=== PATIENT | male | born 1975 | race Caucasian/White ===

== ENCOUNTER 2019-06-17 16:10 | Emergency (ER) | payer SELFPAY ==
[2019-06-17 16:22] VITALS: BP 144/96; PULSE 110; TEMP 98.3; BMI 37.5
--- NOTE | 2019-06-17 17:10 | PDOC ---
History of Present Illness - General Chief Complaint: Nasal Bleeding Stated Complaint: EPISTAXIS Time Seen by Provider: 06/17/19 16:25 - History of Present Illness Initial Comments: 06/17/19 17:07 CHIEF COMPLAINT: epistaxis HISTORY OF PRESENT ILLNESS: 43 yo M presents to fast track with epistaxis since this morning. Patient reports he went to an urgent care where they placed "the balloon or something" but was concerned because it appeared to still be bleeding when he left the urgent care. He reports he is not currently bleeding but wanted to make sure it was ok. No recent travel or sick contacts. PAST MEDICAL HISTORY: Denies past medical history FAMILY HISTORY: Denies SOCIAL HISTORY: Denies tobacco, alcohol, illicit drug use. SURGICAL HISTORY: Denies ALLERGIES: No known drug allergies REVIEW OF SYSTEMS General/Constitutional: Denies fever or chills. Denies weakness, weight change. HEENT: Epistaxis since this morning, no active bleeding at this time. Cardiovascular: Denies chest pain or shortness of breath. Respiratory: Denies cough, wheezing, or hemoptysis. Gastrointestinal: Denies nausea, vomiting, diarrhea or constipation. Denies rectal bleeding. Genitourinary: Denies dysuria, frequency, or change in urination. Musculoskeletal: Denies joint or muscle swelling or pain. Denies neck or back pain. Skin and breasts: Denies rash or easy bruising. Neurologic: Denies headache, vertigo, loss of consciousness, or loss of sensation. Psychiatric: Denies depression or anxiety. PHYSICAL EXAM General Appearance: Well-appearing, appropriately dressed. No apparent distress , no intoxication. HEENT: Saturated rhinorocket to left nare, no active bleeding. EOMI, PERRLA, normal ENT inspection, normal voice, TMs normal, pharynx normal. No conjunctival pallor. No photophobia, scleral icterus. Neck: Supple. Trachea midline. No tenderness, rigidity, carotid bruit, stridor , lymphadenopathy, or thyromegaly. Respiratory/Chest: Lungs CTAB. No shortness of breath, chest tenderness, respiratory distress, accessory muscle use. No crackles, rales, rhonchi, stridor , wheezing, dullness Cardiovascular: RRR. S1, S2. No JVD, murmur, bradycardia, tachycardia. Vascular Pulses: Dorsalis-Pedis (R): 2+, Dorsalis-Pedis (L): 2+ Gastrointestinal/Abdominal: Normal bowel sounds. Abdomen soft, non-distended. No tenderness or rebound tenderness. No organomegaly, pulsatile mass, guarding , hernia, hepatomegaly, splenomegaly. Lymphatic: No adenopathy, tenderness. Musculoskeletal/Extremities: Normal inspection. FROM of all extremities, normal capillary refill. Pelvis Stable. No CVA tenderness. No tenderness to extremities, pedal edema, swelling, erythema or deformity. Integumentary: Appropriate color, dry, warm. 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 Fully oriented, alert. Appropriate mood/affect. Motor strength 5/5. No appreciable EOM palsy, facial droop or sensory deficit. Past History - Past Medical History Allergies/Adverse Reactions: Allergies Allergy/AdvReac Type Severity Reaction Status Date / Time No Known Allergies Allergy Verified 06/17/19 16:22 COPD: No - Psycho Social/Smoking Cessation Hx Smoking History: Never smoked Have you smoked in the past 12 months: No Information on smoking cessation initiated: No Hx Alcohol Use: No Drug/Substance Use Hx: No *Physical Exam - Vital Signs Last Vital Signs Temp Pulse Resp BP Pulse Ox 98.3 F 110 H 18 144/96 100 06/17/19 16:18 06/17/19 16:18 06/17/19 16:18 06/17/19 16:18 06/17/19 16:18 Medical Decision Making - Medical Decision Making 06/17/19 17:10 43 yo M presents to fast track with epistaxis since this morning. Advised patient to f/u with ENT for nasal tampon removal. Patient verbalized understanding and agrees to plan. Discharge - Discharge Information Problems reviewed: Yes Clinical Impression/Diagnosis: Bleeding nose Condition: Stable Disposition: HOME - Admission No - Follow up/Referral Referrals: Venkatesh Harrison MD [Staff Physician] - - Patient Discharge Instructions Patient Printed Discharge Instructions: DI for Nosebleed - Post Discharge Activity
== END 2019-06-17 17:54 | disposition home or self-care (01) ==
LOC: SJMCTERGIS 16:10 → JER 16:10
DX: R04.0 Epistaxis (principal)
CPT/HCPCS: 99281-25

== ENCOUNTER 2019-06-17 19:14 | Emergency (ER) | payer SELFPAY ==
--- NOTE | 2019-06-17 19:17 | PDOC ---
Rapid Medical Evaluation Time Seen by Provider: 06/17/19 19:17 Medical Evaluation: Allergies Allergy/AdvReac Type Severity Reaction Status Date / Time No Known Allergies Allergy Verified 06/17/19 16:22 06/17/19 19:17 I have performed a brief in-person evaluation of this patient. The patient presents with a chief complaint of:epistaxis. Seen in ED earlier today for same after c/o bleeding around nasal packing that was placed in this am. Was not actively bleeding in ED earlier so was discharged to f/u with ENT with whom he has a referral for in 2 days. Returns tonight w/ complaint that he has been bleeding around packing since he's been home and fells "like I' m choking on something back there". H/o epistaxis, not on blood thinners Pertinent physical exam findings: nasal packing in place to L nares w/ active epistaxis around packing, saturating string I have ordered the following:nothing The patient will proceed to the ED for further evaluation. Discharge Disposition - Diagnosis Epistaxis - Referrals - Patient Instructions - Post Discharge Activity
[2019-06-17 19:31] VITALS: BMI 36.0
--- NOTE | 2019-06-17 21:03 | PDOC ---
History of Present Illness - General Chief Complaint: Nasal Bleeding Stated Complaint: NOSE BLEED Time Seen by Provider: 06/17/19 19:17 History Source: Patient Exam Limitations: No Limitations - History of Present Illness Initial Comments: 06/17/19 23:42 43 yo M with a hx of Ulcerative Colitis presents to the emergency department with nose bleeding that has occurred since 7 am today. Per the patient, never had this prior and stated that he has had URI for the last 1.5 weeks which involved digital trauma to the nares when he would wipe his nose. He denies AC use. He states he feels lightheaded and increased anxiety. He presented at Urgent care today who gave him gauze packing without afrin use. He denies having a rhino rocket in the past. Denies the following: fever, chills, trauma, ear pain, chest pain, nausea, vomiting, dysuria, hematuria, hematochezia, and leg pain/swelling. PE: blood in the nares bilaterally. unable to visualize bleeding source but active bleeding draining from right nare. Patient was given afrin soaked gauze and applied pressure for 15-20 minutes with cessation of bleeding. Patient was signed out to day team. Past History - Past Medical History Allergies/Adverse Reactions: Allergies Allergy/AdvReac Type Severity Reaction Status Date / Time No Known Allergies Allergy Verified 06/17/19 16:22 Home Medications: Ambulatory Orders NK [No Known Home Medication] 06/17/19 COPD: No Other medical history: h/o nose bleeds - Psycho Social/Smoking Cessation Hx Smoking History: Never smoked Have you smoked in the past 12 months: No Hx Alcohol Use: No Drug/Substance Use Hx: No *Physical Exam - Vital Signs Last Vital Signs Temp Pulse Resp BP Pulse Ox 97.9 F 114 H 20 144/96 100 06/17/19 19:18 06/17/19 19:18 06/17/19 19:18 06/17/19 19:18 06/17/19 19:18 ED Treatment Course - LABORATORY CBC & Chemistry Diagram: 06/17/19 21:55 06/17/19 21:55 Discharge - Discharge Information Clinical Impression/Diagnosis: Epistaxis - Follow up/Referral - Patient Discharge Instructions - Post Discharge Activity
[2019-06-17] MEDS ORDERED: OXYMETAZOLINE 0.05% NASAL SOLUTION 15 ML BOTTLE NS ONE (21:04)
[2019-06-17 22:28] LABS: BASO % 0.6 % (0-2.0); EOS % 4.4 % (0-4.5); HEMATOCRIT 38.3 % (35.4-49); HEMOGLOBIN 12.7 GM/dL (11.7-16.9); LYMPH % 24.6 % (8-40); MCH 27.4 pg (25.7-33.7); MCHC 33.2 g/dl (32.0-35.9); MEAN CELL VOLUME 82.5 fl (80-96); MEAN PLT VOLUME 8.4 fl (7.5-11.1); MONO % 6.9 % (3.8-10.2); NEUT % 63.5 % (42.8-82.8); PLATELET COUNT 317 K/MM3 (134-434); RBC 4.64 M/mm3 (4.00-5.60); RDW 13.5 % (11.9-15.9); WHITE BLOOD COUNT 8.9 K/mm3 (4.0-10.0)
[2019-06-17 22:40] LABS: INR 1.06 (0.83-1.09); PROTHROMBIN TIME (PATIENT) 12.5 SEC (9.7-13.0)
[2019-06-17 22:51] VITALS: BP 134/98; PULSE 109; TEMP 97.6
[2019-06-17 22:53] LABS: ALBUMIN 3.9 g/dl (3.4-5.0); BILIRUBIN,TOTAL 0.4 mg/dL (0.2-1); CALCIUM 9.5 mg/dL (8.5-10.1); CREATININE 0.9 mg/dL (0.55-1.3); TOT PROT 8.6 g/dl (6.4-8.2)
--- NOTE | 2019-06-17 23:50 | PDOC ---
*Physical Exam - Vital Signs Last Vital Signs Temp Pulse Resp BP Pulse Ox 97.6 F 109 H 20 134/98 95 06/17/19 20:20 06/17/19 20:20 06/17/19 20:20 06/17/19 20:20 06/17/19 20:20 - Physical Exam Comments: 06/17/19 23:46 GENERAL: Awake, alert, and fully oriented, in no acute distress HEAD: No signs of trauma, normocephalic, atraumatic EYES: PERRLA, EOMI, sclera anicteric, conjunctiva clear ENT: + Dried blood BL nares. Auricles normal inspection, hearing grossly normal , nares patent, oropharynx clear without exudates. Moist mucosa NECK: Normal ROM, supple, no lymphadenopathy, JVD, or masses LUNGS: No distress, speaks full sentences, clear to auscultation bilaterally HEART: Regular rate and rhythm, normal S1 and S2, no murmurs, rubs or gallops, peripheral pulses normal and equal bilaterally. ABDOMEN: Soft, nontender, normoactive bowel sounds. No guarding, no rebound. No masses EXTREMITIES : Normal inspection, Normal range of motion, no edema. No clubbing or cyanosis NEUROLOGICAL: Cranial nerves II through XII grossly intact. Normal speech, normal gait, no focal sensorimotor deficits SKIN: Warm, Dry, normal turgor, no rashes or lesions noted ED Treatment Course - LABORATORY CBC & Chemistry Diagram: 06/17/19 21:55 06/17/19 21:55 - ADDITIONAL ORDERS Additional order review: Laboratory Results 06/17/19 06/17/19 06/17/19 21:55 21:55 21:55 PT with INR 12.50 INR 1.06 PTT (Actin FS) 33.0 Sodium 140 Potassium 4.0 Chloride 107 Carbon Dioxide 26 Anion Gap 7 L BUN 20.0 H Creatinine 0.9 Est GFR (CKD-EPI)AfAm 120.81 Est GFR (CKD-EPI)NonAf 104.24 Random Glucose 91 Calcium 9.5 Total Bilirubin 0.4 AST 17 ALT 29 Alkaline Phosphatase 87 Total Protein 8.6 H Albumin 3.9 Blood Type A NEGATIVE Antibody Screen Negative 06/17/19 21:55 RBC 4.64 MCV 82.5 MCHC 33.2 RDW 13.5 MPV 8.4 Neutrophils % 63.5 Lymphocytes % 24.6 Monocytes % 6.9 Eosinophils % 4.4 Basophils % 0.6 - Medications Given in the ED: ED Medications Discontinued Medications Generic Name Dose Route Start Last Admin Trade Name Nick PRN Reason Stop Dose Admin Oxymetazoline HCl 1 spray 06/17/19 21:04 06/17/19 21:50 Afrin - NS 06/17/19 21:05 1 spray ONCE ONE Administration Medical Decision Making - Medical Decision Making 06/17/19 23:47 43 yo M with h/o UC who p/w BL epistaxis beginning 7 AM, evaluated in ED earlier today for epistaxis. Patient endorsed by Dr. Sterling. Vitallast wnl, AF, A& Ox3. EXam notable for dried blood BL nares. Patient has recieved nasal oxymetazoline. Pending labs, and reasses. Ed Course: CBC,CMP: Unremarkable Patient with absent active blood per nares. Patient stable for d/c with return precautions Discharge - Discharge Information Problems reviewed: Yes Clinical Impression/Diagnosis: Epistaxis - Admission No - Follow up/Referral - Patient Discharge Instructions Patient Printed Discharge Instructions: DI for Nosebleed Additional Instructions: Please return to the emergency department with any new or worsening symptoms or concerns. Please follow up with your primary care physician within 72 hours. - Post Discharge Activity
--- NOTE | 2019-06-17 23:58 | PDOC ---
Documentation entered by Silva Whaley SCRIBE, acting as scribe for Mansi Edmonds MD. Mansi Edmonds MD: This documentation has been prepared by the Jovana cortes Adrianna, SCRIBE, under my direction and personally reviewed by me in its entirety. I confirm that the documentation accurately reflects all work, treatment, procedures, and medical decision making performed by me. Attending Attestation - Resident Resident Name: AsherJony - ED Attending Attestation I have performed the following: I have examined & evaluated the patient, The case was reviewed & discussed with the resident, I agree w/resident's findings & plan, Exceptions are as noted - HPI HPI: The patient is a 43 year old male, with a significant PMH of recurrent nosebleeds, who presents for evaluation of ongoing epistaxis since this morning. Patient went to and had his nose packed, but the bleeding continued. He was seen in ER subsequently, and upon leaving sneezing in his Uber and the bleeding returned. Allergies: NKA, NKDA Surgical History: None reported Social History: Denies EtOH, tobacco, or illicit drug use - Physicial Exam PE: 06/17/19 23:55 Well-nourished well-developed 43-year-old male presented with nasal packing status post epitaxis today Head is normocephalic atraumatic Neck is supple Nares both are packed with nasal packing Oropharynx no bleeding in the back of his pharynx Lungs are clear to auscultation CVS regular rate and rhythm S1-S2 Abdomen flat Skin warm and dry Neuro alert and oriented x3, ambulating - Medical Decision Making 06/17/19 23:56 the pt's packings were replaced with Rhino rocket and afrin applied to nares labs wnl bleeding controlled pt d/c home with ENT follow up
== END 2019-06-18 00:05 | disposition home or self-care (01) ==
LOC: JER 19:14
PROC: 093K7ZZ Control Bleeding in Nasal Mucosa and Soft Tissue, Via Natural or Artificial Opening (ICD-10-PCS; principal; 2019-06-17)
DX: R04.0 Epistaxis (principal)
CPT/HCPCS: 36415; 80053; 85025; 85610; 85730; 86850; 86900; 86901; 99282-25

== ENCOUNTER 2022-03-29 09:32 | Emergency (ER) | payer OTHER ==
[2022-03-29 10:06] VITALS: RESP 17; TEMP 98; BMI 39.1
[2022-03-29] MEDS ORDERED: SODIUM CHLORIDE 1,000 ML IV STA (10:41)
[2022-03-29 12:36] LABS: EOS % 8.4 % (0-4.5); HEMATOCRIT 38.7 % (35.4-49); HEMOGLOBIN 13.2 GM/dL (11.7-16.9); LYMPH % 34.5 % (8-40); MCH 27.5 pg (25.7-33.7); MCHC 34.2 g/dl (32.0-35.9); MEAN CELL VOLUME 80.5 fl (80-96); MEAN PLT VOLUME 8.7 fl (7.5-11.1); MONO % 9.1 % (3.8-10.2); PLATELET COUNT 288 10^3/uL (134-434); RBC 4.81 M/mm3 (4.00-5.60); RDW 14.6 % (11.9-15.9); WHITE BLOOD COUNT 5.6 K/mm3 (4.0-10.0)
[2022-03-29 12:55] LABS: ALBUMIN 3.7 g/dl (3.4-5.0); CALCIUM 8.9 mg/dL (8.5-10.1)
[2022-03-29 12:56] LABS: BLOOD UREA NITROGEN 11.8 mg/dL (7-18); MAGNESIUM 2.3 mg/dL (1.8-2.4)
[2022-03-29 12:58] LABS: CREATININE 0.8 mg/dL (0.55-1.3)
[2022-03-29 13:01] LABS: BILIRUBIN,TOTAL 0.4 mg/dL (0.2-1)
[2022-03-29 14:46] VITALS: BP 126/82; PULSE 80
== END 2022-03-29 14:35 | disposition home or self-care (01) ==
LOC: JER 09:32
PROC: 3E0337Z Introduction of Electrolytic and Water Balance Substance into Peripheral Vein, Percutaneous Approach (ICD-10-PCS; principal; 2022-03-29)
DX: R42 Dizziness and giddiness (principal)
CPT/HCPCS: 36415; 70450-TC; 80053; 83735; 84484; 85025; 93005; 93010; 99285-25

== ENCOUNTER 2023-03-31 10:57 | Emergency (ER) | payer OTHER ==
[2023-03-31 11:00] VITALS: BMI 37.5
[2023-03-31 12:02] LABS: HEMATOCRIT 37.1 % (35.4-49); HEMOGLOBIN 12.2 GM/dL (11.7-16.9); MCH 27.1 pg (25.7-33.7); MEAN CELL VOLUME 82.1 fl (80-96); MEAN PLT VOLUME 8.7 fl (7.5-11.1); PLATELET COUNT 242 10^3/uL (134-434); RBC 4.52 M/mm3 (4.00-5.60); RDW 13.3 % (11.9-15.9); WHITE BLOOD COUNT 4.6 K/mm3 (4.0-10.0)
[2023-03-31 12:18] LABS: POTASSIUM 4.4 mmol/L (3.5-5.1)
[2023-03-31 12:20] LABS: ALBUMIN 3.5 g/dl (3.4-5.0); BLOOD UREA NITROGEN 13.8 mg/dL (7-18); CALCIUM 8.6 mg/dL (8.5-10.1)
[2023-03-31 12:24] LABS: CREATININE 0.9 mg/dL (0.55-1.3)
[2023-03-31 12:25] LABS: BILIRUBIN,TOTAL 0.6 mg/dL (0.2-1); TOT PROT 7.5 g/dl (6.4-8.2)
[2023-03-31 15:13] VITALS: BP 122/72; PULSE 78; RESP 19; TEMP 98.6
== END 2023-03-31 15:38 | disposition home or self-care (01) ==
LOC: JER 10:57
DX: K92.1 Melena (principal)
CPT/HCPCS: 36415; 74177-TC; 80053; 82272; 83735; 85027; 99285-25

== ENCOUNTER 2023-08-02 13:45 | Emergency (ER) | payer OTHER ==
[2023-08-02 14:00] VITALS: BP 146/92; PULSE 87; RESP 18; TEMP 98.1; BMI 37.5
== END 2023-08-02 15:28 | disposition home or self-care (01) ==
LOC: JERFT 13:45
DX: R05.9 Cough, unspecified (principal); R09.81 Nasal congestion; R06.02 Shortness of breath; J40 Bronchitis, not specified as acute or chronic
CPT/HCPCS: 71046-TC-FY; 99283-25